=== PATIENT | female | born 1955 | race Caucasian/White ===

== ENCOUNTER 2023-12-13 11:54 | Emergency (ER) | payer MEDICARE, OTHER ==
[~2023-12-13] VITALS: Ht 160 cm; Wt 64.4 kg
[2023-12-13 12:28] VITALS: O2SAT 97
== END 2023-12-13 12:34 | disposition home or self-care (01) ==
LOC: ER 11:56
DX: R04.0 Epistaxis (principal); F20.9 Schizophrenia, unspecified; Z88.1 Allergy status to other antibiotic agents
CPT/HCPCS: A4606; A4663